=== PATIENT | male | born 1955 | race Two or more races ===

== ENCOUNTER → 2018-06-25 | Outpatient (CLI) | payer MEDICAID | LOC: BMCIMAGING 11:34 | PROVIDERS: ATTEND Internal Medicine | DX: Z01.818 Encounter for other preprocedural examination (principal); J90 Pleural effusion, not elsewhere classified; R06.00 Dyspnea, unspecified ==

== ENCOUNTER → 2018-07-01 | Outpatient (CLI) | payer MEDICAID | LOC: CIMAGING 13:15 | PROVIDERS: ATTEND Internal Medicine | DX: R91.1 Solitary pulmonary nodule (principal) | CPT/HCPCS: 71250-PO ==

== ENCOUNTER → 2018-08-14 | Outpatient (CLI) | payer MEDICAID | LOC: SBRMNEURO 21:30 | PROVIDERS: ATTEND Physician Assistant Medical | DX: G47.33 Obstructive sleep apnea (adult) (pediatric) (principal); G47.36 Sleep related hypoventilation in conditions classified elsewhere; G47.61 Periodic limb movement disorder ==